=== PATIENT | male | born 1980 | race Caucasian/White ===

== ENCOUNTER → 2016-10-24 | Outpatient (REF) | LOC: WSOH 11:57 | DX: Z11.1 Encounter for screening for respiratory tuberculosis (principal) ==

== ENCOUNTER → 2016-11-04 | Outpatient (REF) | LOC: WSOH 10:00 | DX: Z00.00 Encounter for general adult medical examination without abnormal findings (principal) ==

== ENCOUNTER → 2017-10-30 | Outpatient (REF) | LOC: WSOH 08:13 | DX: Z00.00 Encounter for general adult medical examination without abnormal findings (principal) ==